=== PATIENT | female | born 1940 | race Caucasian/White ===

== ENCOUNTER 2017-01-10 18:43 | Emergency (ER) | payer MEDICARE ==
[~2017-01-10] VITALS: Ht 165.1 cm; Wt 61.0 kg
[~2017-01-10 18:43] MED LIST: DICL50TA9 PO; GABA-531 PO; IBUP-2028 PO; IBUP-2030 PO; OXYB15TA9 PO; RANI150C12 PO
[2017-01-10] MEDS ORDERED: MORPHINE SULFATE 2 MG/ML CPJ (NOT FOR IM USE) IV ONE (20:45)
[2017-01-10] MEDS ORDERED: KETOROLAC 15MG/ML VIAL IV ONE (20:45)
[2017-01-10] MEDS ORDERED: SODIUM CHLORIDE 0.9% 500 ML IV ONE (20:45)
[2017-01-10] MEDS ORDERED: MORPHINE SULFATE 4 MG/ML CPJ (NOT FOR IM USE) IV ONE (20:55)
[2017-01-10 21:22] LABS: BASOPHILS % 0.6 % (0.0-2.0); EOSINOPHILS % 0.2 % (0.0-5.0); HEMATOCRIT. 28.4 % (36.0-48.0); HEMOGLOBIN. 9.4 g/dL (12.0-16.0); LYMPHOCYTES % 13.7 % (20.0-50.0); MEAN CORPUSCULAR HEMOGLOBIN 30.4 pg (28.0-32.0); MEAN CORPUSCULAR VOLUME 91.6 fL (81.0-99.0); MEAN PLATELET VOLUME 6.8 fl (7.4-10.4); MONOCYTES % 11.6 % (2.0-8.0); NEUTROPHILS % 73.9 % (40.0-76.0); PLATELET 299 x1000/uL (130-400)
[2017-01-10 21:26] LABS: CHLORIDE 103 mEq/L (98-107)
[2017-01-10 21:28] LABS: CARBON DIOXIDE 22 mEq/L (21-32)
[2017-01-10 21:36] LABS: TROPONIN I < 0.02 ng/mL (0.00-0.04)
[2017-01-10 22:38] LABS: CLARITY URINE CLEAR (CLEAR); COLOR URINE YELLOW (YELLOW); PROTEIN URINE NEGATIVE (NEGATIVE); SPECIFIC GRAVITY URINE 1.011 (1.005-1.030)
[2017-01-10 22:39] LABS: GLUCOSE URINE NEGATIVE (NEGATIVE); KETONES URINE NEGATIVE (NEGATIVE); NITRITE URINE NEGATIVE (NEGATIVE); OCCULT BLOOD URINE NEGATIVE (NEGATIVE)
[2017-01-10 22:40] LABS: LEUKOCYTE ESTERASE URINE TRACE (NEGATIVE); UROBILINOGEN URINE 0.2 E.U./dL (0.2-1.0)
[2017-01-10 23:50] VITALS: BP 9/57
== END 2017-01-10 23:50 | disposition home or self-care (01) ==
LOC: ER 18:43
DX: N39.0 Urinary tract infection, site not specified (principal); R55 Syncope and collapse
CPT/HCPCS: 36415; 70450; 71010; 80053; 81001; 84484; 85025; 87040; 87086; 93005; 96361; 96374; 96375; 99285; J1885; J2270; J7040

== ENCOUNTER 2017-01-14 10:50 | Inpatient (IN) | payer MEDICARE ==
[~2017-01-14] VITALS: Ht 149.9 cm; Wt 69.4 kg
[2017-01-14] MEDS ORDERED: VANCOMYCIN 1,250 MG in DEXT 5% WATER 250 ML IV STA (10:55)
[2017-01-14] MEDS ORDERED: PIPERACILLIN SODIUM/TAZOBACTAM 4.5 G in DEXT 5% WATER 100 ML IV SCH (11:00)
[2017-01-14] MEDS ORDERED: SODIUM CHLORIDE 0.9% 1000ML BAG (SEPSIS BOLUS) IV ONE (11:00)
[2017-01-14] MEDS ORDERED: ACETAMINOPHEN 325MG TABLET PO ONE (11:15)
[2017-01-14 11:20] LABS: BG CARBOXYHEMOGLOBIN 0.3 % (0.5-1.5); BG DEOXYHEMOGLOBIN 4.7 % (0.0-5.0); BG HCO3 ACT 21.7 mmol/L (22.0-26.0); BG METHEMOGLOBIN 0.2 % (0.0-1.5); BG OXYGEN SATURATION 95.3 % (92.0-98.5); BG OXYHEMOGLOBIN 94.8 % (94.0-97.0); BG PCO2 29.5 mmHg (35.0-45.0); BG PH 7.484 (7.350-7.450); BG PO2 71.3 mmHg (75.0-100.0); BG SAMPLE SITE RIGHT RADIAL; BG TOTAL HEMOGLOBIN 10.5 g/dL (12.0-18.0); BG VENT MODE ROOM AIR
[2017-01-14 11:25] LABS: HEMATOCRIT. 28.4 % (36.0-48.0); HEMOGLOBIN. 9.5 g/dL (12.0-16.0); MEAN CORPUSCULAR HEMOGLOBIN 30.5 pg (28.0-32.0); MEAN CORPUSCULAR VOLUME 91.3 fL (81.0-99.0); PLATELET 311 x1000/uL (130-400); RED BLOOD CELL COUNT 3.11 mill/uL (4.2-5.4)
[2017-01-14 11:32] LABS: INR 1.2; PROTHROMBIN TIME 12.5 sec (9.4-11.6)
[2017-01-14 11:44] LABS: CARBON DIOXIDE 22 mEq/L (21-32); CHLORIDE 102 mEq/L (98-107); TROPONIN I 0.11 ng/mL (0.00-0.04)
[2017-01-14] MEDS ORDERED: ONDANSETRON HCL 4MG/2ML VIAL IV ONE (11:45)
[2017-01-14] MEDS ORDERED: MORPHINE SULFATE 2 MG/ML CPJ (NOT FOR IM USE) IV ONE (11:45)
[2017-01-14 12:17] LABS: CLARITY URINE CLOUDY (CLEAR); COLOR URINE YELLOW (YELLOW); GLUCOSE URINE NEGATIVE (NEGATIVE); KETONES URINE NEGATIVE (NEGATIVE); LEUKOCYTE ESTERASE URINE 3+ (NEGATIVE); NITRITE URINE NEGATIVE (NEGATIVE); OCCULT BLOOD URINE 1+ (NEGATIVE); PROTEIN URINE NEGATIVE (NEGATIVE); SPECIFIC GRAVITY URINE 1.007 (1.005-1.030); UROBILINOGEN URINE 0.2 E.U./dL (0.2-1.0)
[2017-01-14 12:28] LABS: PLATELET ESTIMATE NORMAL
[2017-01-14] MEDS ORDERED: SODIUM CHLORIDE 0.9% 1,000 ML IV ONE ×2 (13:10→19:15)
[2017-01-14] MEDS ORDERED: NOREPINEPHRINE 4 MG in DEXT 5% WATER 246 ML IV ONE ×2 (13:45→14:15)
[2017-01-14] MEDS ORDERED: LIDOCAINE HCL 1% 20ML VIAL (Pyxis) INJ ONE (15:11)
[2017-01-14] MEDS ORDERED: SODIUM BICARBONATE 4.2% 5 MEQ/10 ML DISP.SYRIN IV ONE (15:11)
[2017-01-14] MEDS ORDERED: METRONIDAZOLE 500 MG PREMIX 100 ML IV ONE (15:30)
[2017-01-14] MEDS ORDERED: DOPAMINE 800MG PREMIX 250 ML IV ONE (15:30)
[2017-01-14] MEDS ORDERED: DOPAMINE 400MG PREMIX 250 ML IV ONE (15:33)
[2017-01-14] MEDS ORDERED: GADOBENATE DIMEGLUMINE 529 MG/ML 10ML IV ONE (15:47)
[2017-01-14] MEDS ORDERED: HYDROCORTISONE SOD SUCCINATE 100 MG/2 ML VIAL IV ONE (16:15)
[2017-01-14] MEDS ORDERED: CLINDAMYCIN 900 MG in DEXTROSE 5% WATER 50 ML IV ONE (16:45)
[2017-01-14] MEDS ORDERED: ONDANSETRON HCL 4MG/2ML VIAL ONE (17:22)
[2017-01-14] MEDS ORDERED: MORPHINE SULFATE 2 MG/ML CPJ (NOT FOR IM USE) IV PRN (19:15)
[2017-01-14] MEDS ORDERED: VANCOMYCIN 1 G PREMIX 200 ML IV SCH (19:15)
[2017-01-14] MEDS ORDERED: ALBUTEROL (0.083%) 2.5MG/3ML NEB HHN PRN (19:30)
[2017-01-14 22:38] VITALS: BP 132/112
[2017-01-14 22:49] VITALS: BP 139/37
[2017-01-14] MEDS ORDERED: TRAM50TA3 PO (22:58)
[2017-01-14] MEDS ORDERED: DOCU-150 PO (22:58)
[2017-01-14] MEDS ORDERED: OMEP40CA34 PO (22:58)
[2017-01-14] MEDS ORDERED: AMOX1TAB15 PO (22:58)
[2017-01-14] MEDS ORDERED: OXYB5TAB11 PO (22:58)
[2017-01-14 23:00] VITALS: BP_SYST 121; BP_SYST 135; BP_DIAS 112; BP_DIAS 62
[2017-01-14 23:15] VITALS: BP 129/80
[2017-01-14] MEDS ORDERED: MORPHINE SULFATE 4 MG/ML CPJ (NOT FOR IM USE) IV PRN (23:25)
[2017-01-14] MEDS ORDERED: NOREPINEPHRINE 8 MG in DEXT 5% WATER 250 ML IV PRN (23:26)
[2017-01-14] MEDS ORDERED: DOPAMINE 400MG PREMIX 250 ML IV PRN (23:26)
[2017-01-14 23:30] VITALS: BP 129/47
[2017-01-14 23:45] VITALS: BP 147/74
[2017-01-15] VITALS (86 sets, daily range): BP systolic 41–166; BP diastolic -8–96
[2017-01-15] MEDS ORDERED: BISACODYL 10MG SUPP PR PRN (00:30)
[2017-01-15] MEDS ORDERED: CEFTRIAXONE 2 G PREMIX 50 ML IV SCH (02:00)
[2017-01-15] MEDS ORDERED: VANCOMYCIN 1 G PREMIX 200 ML IV SCH (05:00)
[2017-01-15 06:14] LABS: HEMATOCRIT. 32.9 % (36.0-48.0); MEAN CORPUSCULAR HEMOGLOBIN 30.6 pg (28.0-32.0); MEAN CORPUSCULAR VOLUME 91.3 fL (81.0-99.0); MEAN PLATELET VOLUME 6.9 fl (7.4-10.4); PLATELET 375 x1000/uL (130-400); RED CELL DISTRIBUTION WIDTH 14.1 % (11.6-14.6)
[2017-01-15 06:27] LABS: CARBON DIOXIDE 23 mEq/L (21-32); CHLORIDE 109 mEq/L (98-107); LDL CHOLESTEROL 68 mg/dL (5-100)
[2017-01-15 06:34] LABS: HDL CHOLESTEROL 18 mg/dL (40-59)
[2017-01-15] MEDS ORDERED: LIDOCAINE HCL 1%/EPI 1:200,000 30 ML VIAL ONE (06:51)
[2017-01-15] MEDS ORDERED: GELATIN SPONGE,ABSORBABLE SZ 100 ONE (06:51)
[2017-01-15] MEDS ORDERED: THROMBIN (BOVINE) 5000 UNITS/VIAL TOP ONE ×2 (06:52→08:54)
[2017-01-15] MEDS ORDERED: BACITRACIN ZINC 15GM TUBE TOP ONE (06:52)
[2017-01-15] MEDS ORDERED: NORMAL SALINE 0.9% 10 ML SYR ONE (06:52)
[2017-01-15] MEDS ORDERED: BACITRACIN 50,000 UNITS/VIAL ONE (06:52)
[2017-01-15] MEDS ORDERED: POTASSIUM CHLORIDE INJ 40 MEQ in DEXT 5% WATER 250 ML IV NR (08:30)
[2017-01-15] MEDS ORDERED: ALBUMIN HUMAN 12.5G/250ML (5%) IV ONE (08:33)
[2017-01-15] MEDS: ALBUTEROL (0.083%) 2.5MG/3ML NEB HHN SCH ×3 (08:50→21:21)
[2017-01-15] MEDS ORDERED: ENOXAPARIN 40MG/0.4ML SYR SUBCUT SCH (09:00)
[2017-01-15] MEDS ORDERED: ALBUMIN HUMAN 12.5GM/50ML (25%) IV ONE (09:31)
[2017-01-15] MEDS ORDERED: ROCURONIUM BROMIDE 10MG/ML VIAL 5ML IV ONE (09:38)
[2017-01-15] MEDS ORDERED: DEXAMETHASONE 4MG/ML 1ML VIAL ONE (09:38)
[2017-01-15] MEDS ORDERED: GLYCOPYRROLATE 0.2 MG/ML 2ML VIAL ONE (09:42)
[2017-01-15] MEDS ORDERED: NEOSTIGMINE METHYLSULFATE 1MG/ML 10 ML VIAL ONE (09:42)
[2017-01-15 09:49] LABS: PLATELET ESTIMATE NORMAL
[2017-01-15] MEDS ORDERED: DEXT 5%/LACTATED RINGERS 1,000 ML IV SCH (10:15)
[2017-01-15] MEDS: PANTOPRAZOLE SODIUM 40 MG/VIAL IV SCH (10:46)
[2017-01-15] MEDS: MORPHINE SULFATE 4 MG/ML CPJ (NOT FOR IM USE) IV PRN (10:46)
[2017-01-15 11:10] LABS: HEMATOCRIT 24.2 % (36.0-48.0); HEMOGLOBIN 8.2 g/dL (12.0-16.0); MEAN CORPUSCULAR HEMOGLOBIN 31.1 pg (28.0-32.0); MEAN CORPUSCULAR VOLUME 91.7 fL (81.0-99.0); PLATELET 246 x1000/uL (130-400); RED BLOOD CELL COUNT 2.64 mill/uL (4.2-5.4)
[2017-01-15] MEDS ORDERED: DIPHENHYDRAMINE INJ IV PRN (11:15)
[2017-01-15] MEDS ORDERED: NALOXONE INJ IV PRN (11:15)
[2017-01-15] MEDS ORDERED: ONDANSETRON INJ IV PRN (11:15)
[2017-01-15 11:23] LABS: CARBON DIOXIDE 20 mEq/L (21-32); CHLORIDE 115 mEq/L (98-107)
[2017-01-15] MEDS: HYDROMORPHONE PCA 10MG/50ML IV PRN (11:37)
[2017-01-15] MEDS ORDERED: ALBUMIN HUMAN 12.5G/250ML (5%) IV SCH (12:30)
[2017-01-15 12:37] LABS: BG CARBOXYHEMOGLOBIN 0.3 % (0.5-1.5); BG DEOXYHEMOGLOBIN 1.2 % (0.0-5.0); BG FRACTION INSPIRED OXYGEN 50; BG METHEMOGLOBIN 0.2 % (0.0-1.5); BG OXYGEN SATURATION 98.8 % (92.0-98.5); BG OXYHEMOGLOBIN 98.3 % (94.0-97.0); BG PCO2 28.3 mmHg (35.0-45.0); BG PH 7.312 (7.350-7.450); BG PO2 163.8 mmHg (75.0-100.0); BG SAMPLE SITE A-LINE; BG TOTAL HEMOGLOBIN 8.8 g/dL (12.0-18.0); BG VENT MODE MASK - SIMPLE
[2017-01-15] MEDS ORDERED: ALBUMIN HUMAN 12.5G/250ML (5%) IV PRN (13:00)
[2017-01-15] MEDS ORDERED: MEROPENEM XX SCH (13:15)
[2017-01-15] MEDS ORDERED: SODIUM BICARBONATE 8.4% 1 MEQ/ML 50ML SYR IV NR (13:15)
[2017-01-15] MEDS ORDERED: AMIKACIN SULFATE 400 MG in SODIUM CHLORIDE 0.9% 100 ML IV SCH (14:00)
[2017-01-15] MEDS: SODIUM ACETATE IV SCH ×2 (14:26→21:46)
[2017-01-15] MEDS: DEXT IV SCH ×2 (14:26→21:46)
[2017-01-15] MEDS: NACL IV SCH ×2 (14:26→21:46)
[2017-01-15] MEDS ORDERED: KCL 20MEQ/100ML PREMIX 100 ML IV NR (14:30)
[2017-01-15] MEDS ORDERED: TETANUS, DIPHTHERIA, PERTUSSIS VAC/PF 0.5ML (>7YR OLD) IM ONE (15:00)
[2017-01-15] MEDS ORDERED: AMIKACIN 500MG in SODIUM CHLORIDE 0.9% 100ML IV SCH (15:30)
[2017-01-15] MEDS: MEROPENEM 2,000 MG in SODIUM CHLORIDE 0.9% 100 ML IV SCH ×2 (15:40→21:46)
[2017-01-15] MEDS: AMIKACIN SULFATE 400 MG in SODIUM CHLORIDE 0.9% 100 ML IV SCH (15:41)
[2017-01-15 17:40] LABS: BG BASE EXCESS -0.8 mmol/L (-2.0-2.0); BG CARBOXYHEMOGLOBIN 0.3 % (0.5-1.5); BG DEOXYHEMOGLOBIN 1.8 % (0.0-5.0); BG FRACTION INSPIRED OXYGEN 32; BG HCO3 ACT 22.8 mmol/L (22.0-26.0); BG METHEMOGLOBIN 0.3 % (0.0-1.5); BG OXYGEN SATURATION 98.2 % (92.0-98.5); BG OXYHEMOGLOBIN 97.6 % (94.0-97.0); BG PCO2 33.2 mmHg (35.0-45.0); BG PH 7.454 (7.350-7.450); BG PO2 132.8 mmHg (75.0-100.0); BG SAMPLE SITE A-LINE; BG TOTAL HEMOGLOBIN 9.3 g/dL (12.0-18.0); BG VENT MODE NASAL CANNULA
[2017-01-15] MEDS: VANCOMYCIN 750 MG PREMIX 150 ML IV SCH (22:23)
[2017-01-16] VITALS (96 sets, daily range): BP systolic 85–158; BP diastolic 39–262
[2017-01-16] MEDS: MORPHINE SULFATE 4 MG/ML CPJ (NOT FOR IM USE) IV PRN (01:57)
[2017-01-16] MEDS: ALBUTEROL (0.083%) 2.5MG/3ML NEB HHN SCH ×4 (02:21→20:35)
[2017-01-16] MEDS: NACL IV SCH ×2 (05:32→11:44)
[2017-01-16] MEDS: DOPAMINE 400MG PREMIX 250 ML IV PRN (05:32)
[2017-01-16] MEDS: DEXT IV SCH ×2 (05:32→11:44)
[2017-01-16] MEDS: SODIUM ACETATE IV SCH ×2 (05:32→11:44)
[2017-01-16] MEDS: MEROPENEM 2,000 MG in SODIUM CHLORIDE 0.9% 100 ML IV SCH ×3 (05:39→21:00)
[2017-01-16 08:43] LABS: BASOPHILS % 0.2 % (0.0-2.0); HEMATOCRIT. 26.9 % (36.0-48.0); HEMOGLOBIN. 8.9 g/dL (12.0-16.0); LYMPHOCYTES % 8.8 % (20.0-50.0); MEAN CORPUSCULAR HEMOGLOBIN 30.4 pg (28.0-32.0); MEAN CORPUSCULAR VOLUME 91.8 fL (81.0-99.0); MONOCYTES % 12.5 % (2.0-8.0); NEUTROPHILS % 78.5 % (40.0-76.0); PLATELET 256 x1000/uL (130-400); RED BLOOD CELL COUNT 2.94 mill/uL (4.2-5.4)
[2017-01-16] MEDS: PANTOPRAZOLE SODIUM 40 MG/VIAL IV SCH (08:47)
[2017-01-16] MEDS: AMIKACIN SULFATE 400 MG in SODIUM CHLORIDE 0.9% 100 ML IV SCH (08:48)
[2017-01-16 08:54] LABS: CARBON DIOXIDE 26 mEq/L (21-32); CHLORIDE 112 mEq/L (98-107); PHOSPHORUS 1.4 mg/dL (2.5-4.9)
[2017-01-16] MEDS ORDERED: POTASSIUM CHLORIDE INJ 40 MEQ in DEXT 5% WATER 250 ML IV NR (11:30)
[2017-01-16] MEDS ORDERED: POTASSIUM PHOS,M-BASIC-D-BASIC 20 MMOL in DEXT 5% WATER 243.3333 ML IV NR (12:00)
[2017-01-16] MEDS: HYDROMORPHONE PCA 10MG/50ML IV PRN (13:20)
[2017-01-16] MEDS: SODIUM CHLORIDE 0.45% 1,000 ML IV SCH (14:00)
[2017-01-16] MEDS: VANCOMYCIN 750 MG PREMIX 150 ML IV SCH (15:49)
[2017-01-16] MEDS ORDERED: MAGNESIUM 2 G PREMIX 50 ML IV NR (16:00)
[2017-01-16 19:27] LABS: CARBON DIOXIDE 30 mEq/L (21-32); CHLORIDE 107 mEq/L (98-107)
[2017-01-16] MEDS ORDERED: POTASSIUM CHLORIDE INJ 30 MEQ in DEXT 5% WATER 500 ML IV ONE (22:00)
[2017-01-17] VITALS (92 sets, daily range): BP systolic 64–146; BP diastolic 15–97
[2017-01-17] MEDS: SODIUM CHLORIDE 0.45% 1,000 ML IV SCH (00:39)
[2017-01-17] MEDS: ALBUTEROL (0.083%) 2.5MG/3ML NEB HHN SCH ×4 (02:10→19:52)
[2017-01-17 05:40] LABS: HEMATOCRIT. 27.9 % (36.0-48.0); HEMOGLOBIN. 9.1 g/dL (12.0-16.0); MEAN CORPUSCULAR HEMOGLOBIN 29.9 pg (28.0-32.0); MEAN CORPUSCULAR VOLUME 91.2 fL (81.0-99.0); MEAN PLATELET VOLUME 6.7 fl (7.4-10.4); PLATELET 233 x1000/uL (130-400); RED BLOOD CELL COUNT 3.06 mill/uL (4.2-5.4); RED CELL DISTRIBUTION WIDTH 14.1 % (11.6-14.6)
[2017-01-17] MEDS: MEROPENEM 2,000 MG in SODIUM CHLORIDE 0.9% 100 ML IV SCH ×3 (05:50→22:54)
[2017-01-17 06:21] LABS: CARBON DIOXIDE 32 mEq/L (21-32); CHLORIDE 102 mEq/L (98-107)
[2017-01-17] MEDS: PANTOPRAZOLE SODIUM 40 MG/VIAL IV SCH (09:11)
[2017-01-17] MEDS: VANCOMYCIN 750 MG PREMIX 150 ML IV SCH (09:12)
[2017-01-17] MEDS: DOPAMINE 400MG PREMIX 250 ML IV PRN (09:58)
[2017-01-17 10:14] LABS: PLATELET ESTIMATE NORMAL
[2017-01-17] MEDS ORDERED: MAGNESIUM 4 G PREMIX 100 ML IV SCH (11:00)
[2017-01-17] MEDS: DEXT 5%/0.45% NACL KCL 40MEQ/L 1,000 ML IV SCH (11:03)
[2017-01-17] MEDS: HYDROMORPHONE PCA 10MG/50ML IV PRN (17:39)
[2017-01-17] MEDS ORDERED: VANCOMYCIN 750 MG PREMIX 150 ML IV SCH (21:00)
[2017-01-18] VITALS (88 sets, daily range): BP systolic 66–141; BP diastolic 43–104
[2017-01-18] MEDS: DEXT 5%/0.45% NACL KCL 40MEQ/L 1,000 ML IV SCH ×2 (01:27→15:38)
[2017-01-18] MEDS: ALBUTEROL (0.083%) 2.5MG/3ML NEB HHN SCH ×4 (01:42→21:33)
[2017-01-18] MEDS: DESMOPRESSIN ACETATE 4MCG/ML AMP SUBCUT SCH ×2 (02:48→15:00)
[2017-01-18] MEDS: DOPAMINE 400MG PREMIX 250 ML IV PRN ×2 (04:44→20:18)
[2017-01-18 05:35] LABS: HEMATOCRIT. 31.6 % (36.0-48.0); HEMOGLOBIN. 10.7 g/dL (12.0-16.0); MEAN CORPUSCULAR HEMOGLOBIN 30.4 pg (28.0-32.0); MEAN CORPUSCULAR VOLUME 89.8 fL (81.0-99.0); MEAN PLATELET VOLUME 6.7 fl (7.4-10.4); PLATELET 250 x1000/uL (130-400); RED BLOOD CELL COUNT 3.52 mill/uL (4.2-5.4); RED CELL DISTRIBUTION WIDTH 13.9 % (11.6-14.6)
[2017-01-18 05:51] LABS: CARBON DIOXIDE 31 mEq/L (21-32); CHLORIDE 99 mEq/L (98-107)
[2017-01-18] MEDS: MEROPENEM 2,000 MG in SODIUM CHLORIDE 0.9% 100 ML IV SCH ×3 (06:03→22:28)
[2017-01-18 06:41] LABS: PLATELET ESTIMATE NORMAL
[2017-01-18] MEDS: PANTOPRAZOLE SODIUM 40 MG/VIAL IV SCH (08:44)
[2017-01-18] MEDS ORDERED: POTASSIUM CHLORIDE INJ 40 MEQ in DEXT 5% WATER 250 ML IV NR (10:30)
[2017-01-18] MEDS ORDERED: GADOBENATE DIMEGLUMINE 529 MG/ML 10ML IV ONE (11:52)
[2017-01-18] MEDS: PHENYLEPHRINE 10 MG in DEXT 5% WATER 249 ML IV PRN (17:41)
[2017-01-19] VITALS (98 sets, daily range): BP systolic 75–155; BP diastolic 33–89
[2017-01-19] MEDS: ALBUTEROL (0.083%) 2.5MG/3ML NEB HHN SCH ×4 (01:18→21:06)
[2017-01-19] MEDS: PHENYLEPHRINE 10 MG in DEXT 5% WATER 249 ML IV PRN ×2 (01:22→06:05)
[2017-01-19] MEDS: DEXT 5%/0.45% NACL KCL 40MEQ/L 1,000 ML IV SCH (05:04)
[2017-01-19 05:34] LABS: HEMATOCRIT. 35.1 % (36.0-48.0); HEMOGLOBIN. 11.7 g/dL (12.0-16.0); MEAN CORPUSCULAR HEMOGLOBIN 30.2 pg (28.0-32.0); MEAN CORPUSCULAR VOLUME 90.6 fL (81.0-99.0); MEAN PLATELET VOLUME 6.6 fl (7.4-10.4); PLATELET 315 x1000/uL (130-400); RED BLOOD CELL COUNT 3.87 mill/uL (4.2-5.4); RED CELL DISTRIBUTION WIDTH 14.1 % (11.6-14.6)
[2017-01-19 06:04] LABS: CARBON DIOXIDE 26 mEq/L (21-32); CHLORIDE 100 mEq/L (98-107)
[2017-01-19] MEDS: MEROPENEM 2,000 MG in SODIUM CHLORIDE 0.9% 100 ML IV SCH ×3 (06:05→22:35)
[2017-01-19] MEDS: PANTOPRAZOLE SODIUM 40 MG/VIAL IV SCH (09:27)
[2017-01-19 10:54] LABS: PLATELET ESTIMATE NORMAL
[2017-01-19] MEDS: PHENYLEPHRINE 20 MG in DEXT 5% WATER 248 ML IV PRN ×3 (11:07→20:27)
[2017-01-19] MEDS: POTASSIUM CHLORIDE INJ 40 MEQ in DEXT 5%/0.9% NACL 1,000 ML IV SCH (14:32)
[2017-01-20] VITALS (97 sets, daily range): BP systolic 71–156; BP diastolic 25–87
[2017-01-20] MEDS: ALBUTEROL (0.083%) 2.5MG/3ML NEB HHN SCH ×4 (01:36→20:25)
[2017-01-20] MEDS: PHENYLEPHRINE 20 MG in DEXT 5% WATER 248 ML IV PRN ×7 (02:39→23:14)
[2017-01-20] MEDS: MORPHINE SULFATE 4 MG/ML CPJ (NOT FOR IM USE) IV PRN ×3 (02:49→19:53)
[2017-01-20] MEDS: POTASSIUM CHLORIDE INJ 40 MEQ in DEXT 5%/0.9% NACL 1,000 ML IV SCH ×2 (03:59→17:23)
[2017-01-20] MEDS: MEROPENEM 2,000 MG in SODIUM CHLORIDE 0.9% 100 ML IV SCH ×3 (05:54→21:51)
[2017-01-20] MEDS: PANTOPRAZOLE SODIUM 40 MG/VIAL IV SCH (08:30)
[2017-01-20 09:11] LABS: HEMATOCRIT. 34.8 % (36.0-48.0); HEMOGLOBIN. 11.6 g/dL (12.0-16.0); MEAN CORPUSCULAR HEMOGLOBIN 30.5 pg (28.0-32.0); MEAN CORPUSCULAR VOLUME 91.5 fL (81.0-99.0); MEAN PLATELET VOLUME 6.9 fl (7.4-10.4); PLATELET 336 x1000/uL (130-400); RED BLOOD CELL COUNT 3.81 mill/uL (4.2-5.4); RED CELL DISTRIBUTION WIDTH 14.1 % (11.6-14.6)
[2017-01-20 09:16] LABS: CARBON DIOXIDE 23 mEq/L (21-32); CHLORIDE 102 mEq/L (98-107)
[2017-01-20] MEDS ORDERED: MORPHINE SULFATE 2 MG/ML CPJ (NOT FOR IM USE) IV PRN (11:15)
[2017-01-20 11:21] LABS: PLATELET ESTIMATE NORMAL
[2017-01-20] MEDS ORDERED: LACTULOSE 20G/30ML UDC PO PRN (13:30)
[2017-01-21] VITALS (96 sets, daily range): BP systolic 64–144; BP diastolic 21–100
[2017-01-21] MEDS: ALBUTEROL (0.083%) 2.5MG/3ML NEB HHN SCH ×4 (01:59→20:39)
[2017-01-21] MEDS: PHENYLEPHRINE 20 MG in DEXT 5% WATER 248 ML IV PRN ×5 (02:38→22:22)
[2017-01-21] MEDS: MORPHINE SULFATE 4 MG/ML CPJ (NOT FOR IM USE) IV PRN ×3 (04:14→19:41)
[2017-01-21 04:53] LABS: HEMOGLOBIN. 10.7 g/dL (12.0-16.0); MEAN CORPUSCULAR HEMOGLOBIN 30.4 pg (28.0-32.0); MEAN CORPUSCULAR VOLUME 90.7 fL (81.0-99.0); MEAN PLATELET VOLUME 6.6 fl (7.4-10.4); PLATELET 363 x1000/uL (130-400); RED BLOOD CELL COUNT 3.53 mill/uL (4.2-5.4); RED CELL DISTRIBUTION WIDTH 14.1 % (11.6-14.6)
[2017-01-21 05:13] LABS: CARBON DIOXIDE 20 mEq/L (21-32); CHLORIDE 103 mEq/L (98-107); CREATINE KINASE 22 IU/L (26-192)
[2017-01-21] MEDS: MEROPENEM 2,000 MG in SODIUM CHLORIDE 0.9% 100 ML IV SCH ×3 (06:27→20:55)
[2017-01-21] MEDS: POTASSIUM CHLORIDE INJ 40 MEQ in DEXT 5%/0.9% NACL 1,000 ML IV SCH (06:27)
[2017-01-21] MEDS: PANTOPRAZOLE SODIUM 40 MG/VIAL IV SCH (08:03)
[2017-01-21] MEDS: ONDANSETRON HCL 4MG/2ML VIAL IV PRN (09:22)
[2017-01-21 10:30] LABS: PLATELET ESTIMATE NORMAL
[2017-01-21] MEDS: MIDODRINE HCL 2.5MG TABLET PO SCH ×3 (11:03→16:13)
[2017-01-21] MEDS: DESMOPRESSIN ACETATE 4MCG/ML AMP SUBCUT SCH (17:04)
[2017-01-21] MEDS: HYDROCODONE/ACETAMINOPHEN 5/325MG TABLET PO PRN (22:20)
[2017-01-22] VITALS (104 sets, daily range): BP systolic 71–161; BP diastolic 16–123
[2017-01-22] MEDS: ALBUTEROL (0.083%) 2.5MG/3ML NEB HHN SCH ×5 (01:31→20:15)
[2017-01-22] MEDS: HYDROCODONE/ACETAMINOPHEN 5/325MG TABLET PO PRN ×3 (02:33→20:29)
[2017-01-22] MEDS: PHENYLEPHRINE 20 MG in DEXT 5% WATER 248 ML IV PRN ×3 (03:22→23:10)
[2017-01-22 05:40] LABS: HEMATOCRIT. 30.7 % (36.0-48.0); HEMOGLOBIN. 10.1 g/dL (12.0-16.0); MEAN CORPUSCULAR HEMOGLOBIN 30.2 pg (28.0-32.0); MEAN CORPUSCULAR VOLUME 91.3 fL (81.0-99.0); MEAN PLATELET VOLUME 6.9 fl (7.4-10.4); PLATELET 390 x1000/uL (130-400); RED BLOOD CELL COUNT 3.36 mill/uL (4.2-5.4); RED CELL DISTRIBUTION WIDTH 14.7 % (11.6-14.6)
[2017-01-22 06:13] LABS: CARBON DIOXIDE 23 mEq/L (21-32); CHLORIDE 98 mEq/L (98-107)
[2017-01-22] MEDS: MEROPENEM 2,000 MG in SODIUM CHLORIDE 0.9% 100 ML IV SCH ×3 (06:31→21:47)
[2017-01-22] MEDS: POTASSIUM CHLORIDE INJ 40 MEQ in DEXT 5%/0.9% NACL 1,000 ML IV SCH ×2 (06:31→21:48)
[2017-01-22] MEDS: MIDODRINE HCL 2.5MG TABLET PO SCH ×3 (08:04→16:33)
[2017-01-22] MEDS: DESMOPRESSIN ACETATE 4MCG/ML AMP SUBCUT SCH ×2 (08:05→16:33)
[2017-01-22] MEDS: PANTOPRAZOLE SODIUM 40 MG/VIAL IV SCH (08:05)
[2017-01-22] MEDS: ONDANSETRON HCL 4MG/2ML VIAL IV PRN ×2 (08:39→14:55)
[2017-01-22] MEDS: MORPHINE SULFATE 4 MG/ML CPJ (NOT FOR IM USE) IV PRN ×2 (08:42→15:25)
[2017-01-22 09:38] LABS: PLATELET ESTIMATE NORMAL
[2017-01-22] MEDS: HYDROCORTISONE SOD SUCCINATE 100 MG/2 ML VIAL IV SCH (21:48)
[2017-01-23] VITALS (52 sets, daily range): BP systolic 56–144; BP diastolic 27–88
[2017-01-23] MEDS: ALBUTEROL (0.083%) 2.5MG/3ML NEB HHN SCH ×4 (00:59→20:15)
[2017-01-23] MEDS: ONDANSETRON HCL 4MG/2ML VIAL IV PRN ×2 (02:55→08:45)
[2017-01-23] MEDS: HYDROCORTISONE SOD SUCCINATE 100 MG/2 ML VIAL IV SCH ×3 (05:40→22:30)
[2017-01-23] MEDS: MEROPENEM 2,000 MG in SODIUM CHLORIDE 0.9% 100 ML IV SCH ×3 (05:40→22:30)
[2017-01-23 06:02] LABS: HEMATOCRIT. 29.2 % (36.0-48.0); HEMOGLOBIN. 10.1 g/dL (12.0-16.0); MEAN CORPUSCULAR HEMOGLOBIN 31.1 pg (28.0-32.0); MEAN CORPUSCULAR VOLUME 89.7 fL (81.0-99.0); MEAN PLATELET VOLUME 6.9 fl (7.4-10.4); PLATELET 374 x1000/uL (130-400); RED BLOOD CELL COUNT 3.26 mill/uL (4.2-5.4); RED CELL DISTRIBUTION WIDTH 14.2 % (11.6-14.6)
[2017-01-23 07:00] LABS: CARBON DIOXIDE 22 mEq/L (21-32); CHLORIDE 91 mEq/L (98-107)
[2017-01-23] MEDS: PANTOPRAZOLE SODIUM 40 MG/VIAL IV SCH (08:45)
[2017-01-23] MEDS: MIDODRINE HCL 2.5MG TABLET PO SCH ×3 (08:46→18:09)
[2017-01-23] MEDS: MORPHINE SULFATE 4 MG/ML CPJ (NOT FOR IM USE) IV PRN ×2 (08:51→14:48)
[2017-01-23 09:48] LABS: PLATELET ESTIMATE NORMAL
[2017-01-23] MEDS: DESMOPRESSIN ACETATE 4MCG/ML AMP SUBCUT SCH ×2 (09:53→18:11)
[2017-01-23] MEDS: HYDROCODONE/ACETAMINOPHEN 5/325MG TABLET PO PRN (11:23)
[2017-01-23] MEDS: PHENYLEPHRINE 20 MG in DEXT 5% WATER 248 ML IV PRN (13:15)
[2017-01-23] MEDS: POTASSIUM CHLORIDE INJ 40 MEQ in DEXT 5%/0.9% NACL 1,000 ML IV SCH ×2 (15:41→18:13)
[2017-01-23 16:28] LABS: CARBON DIOXIDE 22 mEq/L (21-32); CHLORIDE 91 mEq/L (98-107)
[2017-01-24] VITALS (51 sets, daily range): BP systolic 72–135; BP diastolic 29–85
[2017-01-24] MEDS: PHENYLEPHRINE 20 MG in DEXT 5% WATER 248 ML IV PRN ×2 (00:27→16:55)
[2017-01-24] MEDS: MORPHINE SULFATE 4 MG/ML CPJ (NOT FOR IM USE) IV PRN ×4 (01:12→19:02)
[2017-01-24] MEDS: ALBUTEROL (0.083%) 2.5MG/3ML NEB HHN SCH ×5 (01:35→20:09)
[2017-01-24] MEDS: POTASSIUM CHLORIDE INJ 40 MEQ in DEXT 5%/0.9% NACL 1,000 ML IV SCH ×2 (04:08→15:22)
[2017-01-24] MEDS: HYDROCORTISONE SOD SUCCINATE 100 MG/2 ML VIAL IV SCH ×3 (05:59→21:16)
[2017-01-24] MEDS: MEROPENEM 2,000 MG in SODIUM CHLORIDE 0.9% 100 ML IV SCH ×3 (05:59→22:09)
[2017-01-24 06:11] LABS: BASOPHILS % 0.1 % (0.0-2.0); HEMATOCRIT. 29.2 % (36.0-48.0); LYMPHOCYTES % 14.4 % (20.0-50.0); MEAN CORPUSCULAR HEMOGLOBIN 30.8 pg (28.0-32.0); MEAN CORPUSCULAR VOLUME 89.8 fL (81.0-99.0); MEAN PLATELET VOLUME 6.8 fl (7.4-10.4); MONOCYTES % 4.9 % (2.0-8.0); NEUTROPHILS % 80.6 % (40.0-76.0); PLATELET 483 x1000/uL (130-400); RED BLOOD CELL COUNT 3.25 mill/uL (4.2-5.4); RED CELL DISTRIBUTION WIDTH 13.9 % (11.6-14.6)
[2017-01-24 06:12] LABS: CARBON DIOXIDE 21 mEq/L (21-32); CHLORIDE 94 mEq/L (98-107)
[2017-01-24] MEDS: PANTOPRAZOLE SODIUM 40 MG/VIAL IV SCH (09:57)
[2017-01-24] MEDS: MIDODRINE HCL 2.5MG TABLET PO SCH ×3 (09:57→16:19)
[2017-01-24 15:34] LABS: T4 FREE 1.09 ng/dL (0.76-1.46)
[2017-01-24] MEDS ORDERED: MIDODRINE HCL 5MG TABLET PO SCH (17:30)
[2017-01-25] VITALS (75 sets, daily range): BP systolic 58–133; BP diastolic 28–91
[2017-01-25] MEDS: POTASSIUM CHLORIDE INJ 40 MEQ in DEXT 5%/0.9% NACL 1,000 ML IV SCH (01:09)
[2017-01-25] MEDS: MEROPENEM 2,000 MG in SODIUM CHLORIDE 0.9% 100 ML IV SCH ×3 (06:07→22:04)
[2017-01-25] MEDS: HYDROCORTISONE SOD SUCCINATE 100 MG/2 ML VIAL IV SCH ×3 (06:07→22:04)
[2017-01-25 06:17] LABS: BASOPHILS % 0.1 % (0.0-2.0); HEMATOCRIT. 27.2 % (36.0-48.0); HEMOGLOBIN. 9.5 g/dL (12.0-16.0); LYMPHOCYTES % 10.7 % (20.0-50.0); MEAN CORPUSCULAR HEMOGLOBIN 31.2 pg (28.0-32.0); MEAN CORPUSCULAR VOLUME 89.8 fL (81.0-99.0); MEAN PLATELET VOLUME 6.8 fl (7.4-10.4); MONOCYTES % 5.8 % (2.0-8.0); NEUTROPHILS % 83.4 % (40.0-76.0); PLATELET 485 x1000/uL (130-400); RED BLOOD CELL COUNT 3.03 mill/uL (4.2-5.4); RED CELL DISTRIBUTION WIDTH 14.7 % (11.6-14.6)
[2017-01-25 06:42] LABS: CHLORIDE 109 mEq/L (98-107)
[2017-01-25 07:00] LABS: CARBON DIOXIDE 24 mEq/L (21-32); PREALBUMIN 12.8 mg/dL (20.0-40.0)
[2017-01-25 07:18] LABS: PHOSPHORUS 0.7 mg/dL (2.5-4.9)
[2017-01-25] MEDS ORDERED: DEXT 5%/0.45% NACL 1000ML 1,000 ML IV SCH (07:30)
[2017-01-25] MEDS: ALBUTEROL (0.083%) 2.5MG/3ML NEB HHN SCH ×3 (08:00→20:53)
[2017-01-25] MEDS: PANTOPRAZOLE SODIUM 40 MG/VIAL IV SCH (08:44)
[2017-01-25] MEDS: MIDODRINE HCL 5MG TABLET PO SCH ×4 (08:44→23:17)
[2017-01-25] MEDS ORDERED: POTASSIUM PHOS,M-BASIC-D-BASIC 20 MMOL in DEXT 5% WATER 243.3333 ML IV NR (09:00)
[2017-01-25] MEDS ORDERED: DESMOPRESSIN ACETATE IVPB 2 MCG in SODIUM CHLORIDE 0.9% 50 ML IV SCH (09:15)
[2017-01-25] MEDS: MORPHINE SULFATE 4 MG/ML CPJ (NOT FOR IM USE) IV PRN ×2 (09:24→19:44)
[2017-01-25] MEDS: DESMOPRESSIN ACETATE 4MCG/ML AMP SUBCUT SCH (09:47)
[2017-01-25] MEDS: ACETAMINOPHEN 325MG TABLET PO PRN (12:25)
[2017-01-25] MEDS: HYDROCODONE/ACETAMINOPHEN 5/325MG TABLET PO PRN ×2 (15:10→22:04)
[2017-01-25] MEDS: ONDANSETRON HCL 4MG/2ML VIAL IV PRN (15:21)
[2017-01-26] VITALS (47 sets, daily range): BP systolic 57–144; BP diastolic 31–97
[2017-01-26] MEDS: ALBUTEROL (0.083%) 2.5MG/3ML NEB HHN SCH ×3 (00:55→20:04)
[2017-01-26] MEDS: MORPHINE SULFATE 4 MG/ML CPJ (NOT FOR IM USE) IV PRN ×3 (04:53→14:28)
[2017-01-26] MEDS: MEROPENEM 2,000 MG in SODIUM CHLORIDE 0.9% 100 ML IV SCH ×3 (05:00→21:39)
[2017-01-26] MEDS: MIDODRINE HCL 5MG TABLET PO SCH ×3 (05:00→21:39)
[2017-01-26] MEDS: HYDROCORTISONE SOD SUCCINATE 100 MG/2 ML VIAL IV SCH ×2 (05:01→17:40)
[2017-01-26 05:58] LABS: BASOPHILS % 0.2 % (0.0-2.0); HEMATOCRIT. 25.1 % (36.0-48.0); HEMOGLOBIN. 8.6 g/dL (12.0-16.0); MEAN CORPUSCULAR VOLUME 90.5 fL (81.0-99.0); MEAN PLATELET VOLUME 7.1 fl (7.4-10.4); MONOCYTES % 3.2 % (2.0-8.0); NEUTROPHILS % 86.6 % (40.0-76.0); PLATELET 421 x1000/uL (130-400); RED BLOOD CELL COUNT 2.77 mill/uL (4.2-5.4); RED CELL DISTRIBUTION WIDTH 14.6 % (11.6-14.6)
[2017-01-26 07:06] LABS: CARBON DIOXIDE 24 mEq/L (21-32); CHLORIDE 105 mEq/L (98-107)
[2017-01-26 07:57] LABS: PHOSPHORUS 0.9 mg/dL (2.5-4.9)
[2017-01-26 08:21] LABS: FOLICLE STIMULATING HORMONE 0.8 mIU/mL (.); LUTEINIZING HORMONE <0.2 mIU/mL (.)
[2017-01-26] MEDS: DESMOPRESSIN ACETATE 4MCG/ML AMP SUBCUT SCH (08:32)
[2017-01-26] MEDS: PANTOPRAZOLE SODIUM 40 MG/VIAL IV SCH (08:33)
[2017-01-26] MEDS: HYDROCODONE/ACETAMINOPHEN 5/325MG TABLET PO PRN (08:34)
[2017-01-26] MEDS ORDERED: SODIUM PHOS,M-BASIC-D-BASIC 30 MM in DEXT 5% WATER 500 ML IV NR (09:30)
[2017-01-26] MEDS: ACETAMINOPHEN 325MG TABLET PO PRN ×2 (12:47→21:38)
[2017-01-26] MEDS ORDERED: MIDODRINE HCL 5MG TABLET PO SCH (13:00)
[2017-01-27] VITALS (50 sets, daily range): BP systolic 74–136; BP diastolic 23–87
[2017-01-27] MEDS: ALBUTEROL (0.083%) 2.5MG/3ML NEB HHN SCH ×4 (03:22→21:10)
[2017-01-27] MEDS: MIDODRINE HCL 5MG TABLET PO SCH ×3 (05:00→22:47)
[2017-01-27] MEDS: HYDROCORTISONE SOD SUCCINATE 100 MG/2 ML VIAL IV SCH ×2 (05:00→18:13)
[2017-01-27] MEDS: MEROPENEM 2,000 MG in SODIUM CHLORIDE 0.9% 100 ML IV SCH ×3 (05:00→22:49)
[2017-01-27] MEDS: ACETAMINOPHEN 325MG TABLET PO PRN ×2 (05:00→22:35)
[2017-01-27 06:21] LABS: CARBON DIOXIDE 26 mEq/L (21-32); CHLORIDE 104 mEq/L (98-107); PHOSPHORUS 1.4 mg/dL (2.5-4.9)
[2017-01-27] MEDS: POTASSIUM-SODIUM PHOSPHATE POWDER PACKET PO SCH ×2 (09:17→18:13)
[2017-01-27] MEDS: PANTOPRAZOLE SODIUM 40 MG/VIAL IV SCH (09:17)
[2017-01-27] MEDS: DESMOPRESSIN ACETATE 4MCG/ML AMP SUBCUT SCH (09:17)
[2017-01-27] MEDS: MORPHINE SULFATE 4 MG/ML CPJ (NOT FOR IM USE) IV PRN (10:57)
[2017-01-28] VITALS (20 sets, daily range): BP systolic 101–137; BP diastolic 55–88
[2017-01-28] MEDS: ALBUTEROL (0.083%) 2.5MG/3ML NEB HHN SCH ×4 (02:43→20:14)
[2017-01-28] MEDS: MEROPENEM 2,000 MG in SODIUM CHLORIDE 0.9% 100 ML IV SCH ×3 (05:14→22:21)
[2017-01-28] MEDS: HYDROCORTISONE SOD SUCCINATE 100 MG/2 ML VIAL IV SCH ×2 (05:14→17:26)
[2017-01-28] MEDS: MIDODRINE HCL 5MG TABLET PO SCH ×3 (05:15→22:13)
[2017-01-28 06:28] LABS: BASOPHILS % 0.3 % (0.0-2.0); HEMATOCRIT. 26.4 % (36.0-48.0); LYMPHOCYTES % 24.5 % (20.0-50.0); MEAN CORPUSCULAR HEMOGLOBIN 31.5 pg (28.0-32.0); MEAN CORPUSCULAR VOLUME 91.9 fL (81.0-99.0); MEAN PLATELET VOLUME 7.1 fl (7.4-10.4); MONOCYTES % 7.9 % (2.0-8.0); NEUTROPHILS % 67.3 % (40.0-76.0); PLATELET 441 x1000/uL (130-400); RED BLOOD CELL COUNT 2.87 mill/uL (4.2-5.4); RED CELL DISTRIBUTION WIDTH 14.9 % (11.6-14.6)
[2017-01-28 07:03] LABS: CARBON DIOXIDE 26 mEq/L (21-32); CHLORIDE 103 mEq/L (98-107)
[2017-01-28 09:04] LABS: PHOSPHORUS 0.8 mg/dL (2.5-4.9)
[2017-01-28] MEDS: ACETAMINOPHEN 325MG TABLET PO PRN ×2 (09:20→17:26)
[2017-01-28] MEDS: PANTOPRAZOLE SODIUM 40 MG/VIAL IV SCH (09:20)
[2017-01-28] MEDS: POTASSIUM-SODIUM PHOSPHATE POWDER PACKET PO SCH ×2 (09:20→17:26)
[2017-01-28] MEDS: DESMOPRESSIN ACETATE 4MCG/ML AMP SUBCUT SCH (10:51)
[2017-01-28] MEDS ORDERED: POTASSIUM PHOS,M-BASIC-D-BASIC 30 MMOL in DEXT 5% WATER 500 ML IV SCH (11:00)
[2017-01-29] VITALS (10 sets, daily range): BP systolic 100–138; BP diastolic 28–88
[2017-01-29] MEDS: MEROPENEM 2,000 MG in SODIUM CHLORIDE 0.9% 100 ML IV SCH ×3 (06:04→22:16)
[2017-01-29] MEDS: HYDROCORTISONE SOD SUCCINATE 100 MG/2 ML VIAL IV SCH (06:06)
[2017-01-29] MEDS: MIDODRINE HCL 5MG TABLET PO SCH ×3 (06:10→22:18)
[2017-01-29 07:25] LABS: BASOPHILS % 0.2 % (0.0-2.0); HEMATOCRIT. 28.7 % (36.0-48.0); HEMOGLOBIN. 9.7 g/dL (12.0-16.0); LYMPHOCYTES % 27.4 % (20.0-50.0); MEAN CORPUSCULAR HEMOGLOBIN 31.4 pg (28.0-32.0); MEAN CORPUSCULAR VOLUME 92.4 fL (81.0-99.0); MEAN PLATELET VOLUME 7.1 fl (7.4-10.4); MONOCYTES % 10.7 % (2.0-8.0); NEUTROPHILS % 61.7 % (40.0-76.0); PLATELET 454 x1000/uL (130-400); RED CELL DISTRIBUTION WIDTH 15.2 % (11.6-14.6)
[2017-01-29 08:04] LABS: CARBON DIOXIDE 27 mEq/L (21-32); CHLORIDE 104 mEq/L (98-107); PHOSPHORUS 1.1 mg/dL (2.5-4.9)
[2017-01-29] MEDS: DESMOPRESSIN ACETATE 4MCG/ML AMP SUBCUT SCH (08:05)
[2017-01-29] MEDS: PANTOPRAZOLE SODIUM 40 MG/VIAL IV SCH (08:05)
[2017-01-29] MEDS: ACETAMINOPHEN 325MG TABLET PO PRN (08:05)
[2017-01-29] MEDS: POTASSIUM-SODIUM PHOSPHATE POWDER PACKET PO SCH ×2 (08:05→17:34)
[2017-01-29] MEDS ORDERED: POTASSIUM CHLORIDE INJ 40 MEQ in DEXT 5% WATER 500 ML IV NR (11:00)
[2017-01-29] MEDS: MORPHINE SULFATE 4 MG/ML CPJ (NOT FOR IM USE) IV PRN (11:48)
[2017-01-29] MEDS ORDERED: CORTISONE ACETATE 25 MG PO SCH (12:00)
[2017-01-29] MEDS: HYDROCORTISONE 20MG TABLET PO SCH ×2 (13:58→17:20)
[2017-01-29] MEDS: ALBUTEROL (0.083%) 2.5MG/3ML NEB HHN SCH ×2 (19:42)
[2017-01-30] VITALS (12 sets, daily range): BP systolic 101–150; BP diastolic 50–102
[2017-01-30] MEDS: ALBUTEROL (0.083%) 2.5MG/3ML NEB HHN SCH (01:02)
[2017-01-30] MEDS: MEROPENEM 2,000 MG in SODIUM CHLORIDE 0.9% 100 ML IV SCH ×3 (06:20→23:23)
[2017-01-30] MEDS: MIDODRINE HCL 5MG TABLET PO SCH ×3 (06:22→22:03)
[2017-01-30 06:59] LABS: BASOPHILS % 0.2 % (0.0-2.0); EOSINOPHILS % 0.6 % (0.0-5.0); HEMATOCRIT. 31.3 % (36.0-48.0); HEMOGLOBIN. 10.4 g/dL (12.0-16.0); LYMPHOCYTES % 36.8 % (20.0-50.0); MEAN CORPUSCULAR HEMOGLOBIN 31.2 pg (28.0-32.0); MEAN CORPUSCULAR VOLUME 93.7 fL (81.0-99.0); MEAN PLATELET VOLUME 7.1 fl (7.4-10.4); MONOCYTES % 9.3 % (2.0-8.0); NEUTROPHILS % 53.1 % (40.0-76.0); PLATELET 441 x1000/uL (130-400); RED BLOOD CELL COUNT 3.34 mill/uL (4.2-5.4); RED CELL DISTRIBUTION WIDTH 15.5 % (11.6-14.6)
[2017-01-30 07:25] LABS: CARBON DIOXIDE 27 mEq/L (21-32); CHLORIDE 106 mEq/L (98-107); PHOSPHORUS 1.1 mg/dL (2.5-4.9)
[2017-01-30] MEDS: POTASSIUM-SODIUM PHOSPHATE POWDER PACKET PO SCH ×2 (08:06→17:18)
[2017-01-30] MEDS: DESMOPRESSIN ACETATE 4MCG/ML AMP SUBCUT SCH (08:06)
[2017-01-30] MEDS: PANTOPRAZOLE SODIUM 40 MG/VIAL IV SCH (08:06)
[2017-01-30] MEDS: HYDROCORTISONE 20MG TABLET PO SCH ×2 (08:07→17:18)
[2017-01-30] MEDS: ACETAMINOPHEN 325MG TABLET PO PRN ×3 (08:07→22:04)
[2017-01-30] MEDS ORDERED: POTASSIUM CHLORIDE 20MEQ TABLET SR PO NR (11:15)
[2017-01-30] MEDS ORDERED: POTASSIUM PHOS,M-BASIC-D-BASIC 15 MMOL in DEXT 5% WATER 245 ML IV NR (13:00)
[2017-01-30] MEDS ORDERED: ALBUTEROL (0.083%) 2.5MG/3ML NEB HHN PRN (19:30)
[2017-01-31] VITALS (7 sets, daily range): BP systolic 102–148; BP diastolic 44–86
[2017-01-31] MEDS: ALBUTEROL (0.083%) 2.5MG/3ML NEB HHN SCH ×2 (00:45→09:00)
[2017-01-31] MEDS: MEROPENEM 2,000 MG in SODIUM CHLORIDE 0.9% 100 ML IV SCH (05:34)
[2017-01-31] MEDS: MIDODRINE HCL 5MG TABLET PO SCH (06:20)
[2017-01-31] MEDS ORDERED: SODIUM BICARBONATE 4% (2.4MEQ) 5ML VIAL IV ONE (07:49)
[2017-01-31] MEDS ORDERED: LIDOCAINE HCL 1% 20ML VIAL (Pyxis) INJ ONE (07:49)
[2017-01-31 07:50] LABS: BASOPHILS % 0.2 % (0.0-2.0); EOSINOPHILS % 0.2 % (0.0-5.0); HEMATOCRIT. 29.4 % (36.0-48.0); HEMOGLOBIN. 9.9 g/dL (12.0-16.0); LYMPHOCYTES % 29.6 % (20.0-50.0); MEAN CORPUSCULAR HEMOGLOBIN 31.6 pg (28.0-32.0); MEAN CORPUSCULAR VOLUME 93.5 fL (81.0-99.0); MEAN PLATELET VOLUME 7.2 fl (7.4-10.4); MONOCYTES % 8.2 % (2.0-8.0); NEUTROPHILS % 61.8 % (40.0-76.0); PLATELET 417 x1000/uL (130-400); RED BLOOD CELL COUNT 3.14 mill/uL (4.2-5.4); RED CELL DISTRIBUTION WIDTH 16.2 % (11.6-14.6)
[2017-01-31 08:06] LABS: CARBON DIOXIDE 25 mEq/L (21-32); CHLORIDE 109 mEq/L (98-107)
[2017-01-31] MEDS ORDERED: POTASSIUM CHLORIDE 20MEQ TABLET SR PO SCH (08:30)
[2017-01-31] MEDS: PANTOPRAZOLE SODIUM 40 MG/VIAL IV SCH (10:13)
[2017-01-31] MEDS: ACETAMINOPHEN 325MG TABLET PO PRN (10:13)
[2017-01-31] MEDS: POTASSIUM-SODIUM PHOSPHATE POWDER PACKET PO SCH (10:14)
== END 2017-01-31 11:00 | DRG 856 ==
LOC: ER 11:05 → MICUNO 17:14 → EDBEDREQ 17:17 → EDBEDREQSVC 17:48 → ENRESERV 19:59 → 3WST 01-28 06:42
PROVIDERS: ADMIT Internal Medicine; ATTEND Internal Medicine
PROC: 06HM33Z Insertion of Infusion Device into Right Femoral Vein, Percutaneous Approach (ICD-10-PCS; 2017-01-14)
PROC: B54BZZA Ultrasonography of Right Lower Extremity Veins, Guidance (ICD-10-PCS; 2017-01-14)
PROC: 0S903ZX Drainage of Lumbar Vertebral Joint, Percutaneous Approach, Diagnostic (ICD-10-PCS; 2017-01-14)
PROC: 009Y0ZZ Drainage of Lumbar Spinal Cord, Open Approach (ICD-10-PCS; 2017-01-15)
PROC: 30233N1 Transfusion of Nonautologous Red Blood Cells into Peripheral Vein, Percutaneous Approach (ICD-10-PCS; 2017-01-15)
PROC: 00QT0ZZ Repair Spinal Meninges, Open Approach (ICD-10-PCS; 2017-01-15)
PROC: 01NB0ZZ Release Lumbar Nerve, Open Approach (ICD-10-PCS; 2017-01-15)
PROC: 00BY0ZZ Excision of Lumbar Spinal Cord, Open Approach (ICD-10-PCS; principal; 2017-01-15 07:00)
PROC: 02HV33Z Insertion of Infusion Device into Superior Vena Cava, Percutaneous Approach (ICD-10-PCS; 2017-01-31)
PROC: B5181ZA Fluoroscopy of Superior Vena Cava using Low Osmolar Contrast, Guidance (ICD-10-PCS; 2017-01-31)
PROC: B548ZZA Ultrasonography of Superior Vena Cava, Guidance (ICD-10-PCS; 2017-01-31)
DX: T81.4XXA Infection following a procedure, initial encounter (principal); A41.9 Sepsis, unspecified organism; R65.21 Severe sepsis with septic shock; E43 Unspecified severe protein-calorie malnutrition; G06.1 Intraspinal abscess and granuloma; E87.0 Hyperosmolality and hypernatremia; G82.20 Paraplegia, unspecified; M41.9 Scoliosis, unspecified; E27.40 Unspecified adrenocortical insufficiency; E87.1 Hypo-osmolality and hyponatremia; G96.0 Cerebrospinal fluid leak; M46.26 Osteomyelitis of vertebra, lumbar region; N39.0 Urinary tract infection, site not specified; T81.31XA Disruption of external operation (surgical) wound, not elsewhere classified, initial encounter; G97.82 Other postprocedural complications and disorders of nervous system; I27.81 Cor pulmonale (chronic); B96.20 Unspecified Escherichia coli [E. coli] as the cause of diseases classified elsewhere; D64.9 Anemia, unspecified; E83.39 Other disorders of phosphorus metabolism; E87.6 Hypokalemia; I10 Essential (primary) hypertension; K03.81 Cracked tooth; K21.9 Gastro-esophageal reflux disease without esophagitis; M21.371 Foot drop, right foot; M46.40 Discitis, unspecified, site unspecified; R32 Unspecified urinary incontinence; Z72.0 Tobacco use; Z80.0 Family history of malignant neoplasm of digestive organs; Z80.3 Family history of malignant neoplasm of breast; Z82.3 Family history of stroke; Z86.61 Personal history of infections of the central nervous system; Z79.899 Other long term (current) drug therapy; Z68.30 Body mass index [BMI] 30.0-30.9, adult
CPT/HCPCS: 36415; 36556; 36569; 36600; 49180; 70450; 70551; 71010; 71250; 72100; 72131; 72158; 74176; 76937; 77001; 77012; 78580; 80048; 80053; 80061; 80076; 80150; 80202; 81001; 82088; 82375; 82533; 82550; 82805; 83001; 83002; 83036; 83520; 83605; 83690; 83735; 83930; 83935; 84100; 84134; 84146; 84295; 84439; 84443; 84481; 84484; 84550; 85025; 85027; 85610; 85651; 86140; 86850; 86900; 86920; 87040; 87070; 87075; 87077; 87086; 87186; 87205; 88304; 88311; 89050; 90715; 92610; 93005; 93306; 93970; 94640; 97110; 97112; 97116; 97163; 97167; 97530; 97535; 99291; A4216; A6261; A9577; C1725; C9113; J0278; J0696; J1100; J1170; J1265; J1720; J2185; J2270; J2370; J2405; J2543; J2597; J2710; J3370; J3475; J3480; J3490; J7030; J7040; J7042; J7050; J7060; J7121; J7611; L3908; P9016; P9041; P9047; A4315

== ENCOUNTER 2017-06-16 12:29 | Emergency (ER) | payer MEDICARE ==
[~2017-06-16] VITALS: Ht 160 cm; Wt 50.0 kg
[~2017-06-16 12:29] MED LIST changes: +AMOX1TAB15 PO; +DOCU-150 PO; +OMEP40CA34 PO; +OXYB5TAB11 PO; +TRAM50TA3 PO
[2017-06-16] MEDS ORDERED: SODIUM CHLORIDE 0.9% 1,000 ML IV ONE (12:50)
[2017-06-16 13:09] LABS: BASOPHILS % 1.3 % (0.0-2.0); EOSINOPHILS % 5.6 % (0.0-5.0); HEMATOCRIT. 35.9 % (36.0-48.0); MEAN CORPUSCULAR HEMOGLOBIN 31.8 pg (28.0-32.0); MEAN CORPUSCULAR VOLUME 94.9 fL (81.0-99.0); MEAN PLATELET VOLUME 6.6 fl (7.4-10.4); MONOCYTES % 9.6 % (2.0-8.0); NEUTROPHILS % 39.5 % (40.0-76.0); PLATELET 341 x1000/uL (130-400); RED BLOOD CELL COUNT 3.78 mill/uL (4.2-5.4); RED CELL DISTRIBUTION WIDTH 14.6 % (11.6-14.6)
[2017-06-16 13:20] LABS: CHLORIDE 108 mEq/L (98-107)
[2017-06-16] MEDS ORDERED: CARBAMIDE PEROXIDE 6.5% OTIC SOLN 15ML EACH EAR ONE (14:45)
[2017-06-16 15:18] LABS: CLARITY URINE CLEAR (CLEAR); COLOR URINE DARK YELLOW (YELLOW); KETONES URINE NEGATIVE (NEGATIVE); LEUKOCYTE ESTERASE URINE 1+ (NEGATIVE); NITRITE URINE NEGATIVE (NEGATIVE); OCCULT BLOOD URINE NEGATIVE (NEGATIVE); PH URINE 6.5 (4.5-8.0); PROTEIN URINE NEGATIVE (NEGATIVE); SPECIFIC GRAVITY URINE 1.018 (1.005-1.030); UROBILINOGEN URINE 0.2 E.U./dL (0.2-1.0)
[2017-06-16 16:45] VITALS: BP 98/54
== END 2017-06-16 17:20 | disposition home or self-care (01) ==
LOC: ER 13:04
DX: H61.23 Impacted cerumen, bilateral (principal); N39.0 Urinary tract infection, site not specified; L22 Diaper dermatitis; Z98.890 Other specified postprocedural states
CPT/HCPCS: 36415; 80053; 81003; 85025; 87077; 87086; 87186; 93005; 96360; 99285; J7030